=== PATIENT | male | born 1970 | race Caucasian/White ===

== ENCOUNTER 2018-10-27 16:50 | Emergency (ER) | payer BC ==
--- NOTE | 2018-10-27 18:02 | EDPHY ---
H & P Time Seen by Provider: 10/27/18 16:55 HPI/ROS: CHIEF COMPLAINT: Urinary frequency History by patient HISTORY OF PRESENT ILLNESS: 48-year-old man presents complaining of 24 hr of urinary urgency and frequency and sensation of incomplete voiding. Patient states that he today heavy [employer] workout yesterday and then last night began to have these urinary symptoms. There is no specific pain in his back or injury during the workout. He feels "sore all over" from his workout but denies specific back pain. He said he generally felt unwell today. He does have a history of kidney stones in the past many years ago but he says this feels completely different. He denies any localized sharp pain. He denies any pain radiating into his groin. He complains of some suprapubic discomfort. He denies any testicular pain. He denies any penile discharge or lesions. He is not concerned about sexually transmitted diseases. He denies any lower extremity numbness or weakness. He denies any urinary incontinence. He denies any change in bowel habits or bowel incontinence. He denies any fever. He denies any pain with bowel movements. He says his PCP checked his prostate 6 months ago and it was normal. REVIEW OF SYSTEMS: As in HPI, and all other systems reviewed and are negative Smoking Status: Never smoked Physical Exam: General Appearance: Alert, nontoxic-appearing, comfortable. Head: Normocephalic, atraumatic Eyes: Pupils equal and round, no pallor or injection. ENT, Mouth: Mucous membranes moist. Neck: No bony tenderness, full range of motion Gastrointestinal: Abdomen is soft and nontender, no masses, bowel sounds normal. : Normal external genitalia, no testicular tenderness, no penile lesions or discharge Neurological: Awake, alert and oriented x 3, no pronator drift, normal gait, no pronator drift, DTRs 2+ and equal bilaterally in knees and ankles,strength is 5/5 and equal bilaterally in lower extremities Back: No bony tenderness, no CVA tenderness Skin: Warm and dry, no rashes. Musculoskeletal: Neck is supple, FROM, nontender. Extremities: symmetrical, full range of motion. Psychiatric: Patient has normal affect, there is no agitation. Constitutional: Initial Vital Signs Temperature (C) 37.1 C 10/27/18 16:58 Heart Rate 86 10/27/18 16:58 Respiratory Rate 16 10/27/18 16:58 Blood Pressure 134/90 H 10/27/18 16:58 O2 Sat (%) 96 10/27/18 16:58 O2 Delivery Mode Room Air Allergies/Adverse Reactions: No Known Allergies Allergy (Verified 10/27/18 17:14) Home Medications: Medication Instructions Recorded Sulfamethox/Tmp 800/160 mg 1 tab PO BID #14 tab 10/27/18 [Bactrim Ds] MDM/Departure - [facility] ED Course/Re-evaluation: 40-year-old man presents with urinary symptoms. Urinalysis shows blood and leukocytes. Although the patient is leaking his urinary symptoms to his workout he has no specific back pain, there is no evidence of neurologic impairment. I doubt rhabdomyolysis as this with typically not give him urinary symptoms, and this is with the patient is worried about. Urine has been sent for micro culture as well as GC chlamydia cultures to the main lab. In the meantime will treat the patient empirically for urinary tract infection with Bactrim. It is also possible that his urinary symptoms are due to a kidney stone however, he has no symptoms of acute ureterolithiasis renal colic. I have referred him to Urology for further evaluation. - Depart Disposition: Home, Routine, Self-Care Clinical Impression: Urinary tract infection Qualifiers: Urinary tract infection type: site unspecified Hematuria presence: with hematuria Qualified Code(s): N39.0 - Urinary tract infection, site not specified Condition: Good Instructions: Sulfamethoxazole/Trimethoprim (By mouth), Urinary Tract Infection in Men (ED) Additional Instructions: You were seen by Dr. Marge Lazaro today. We are treating you for a urine infection. Please take antibiotics as prescribed. I recommend taking probiotics 1 today in between doses antibiotics. Please follow up with urologist, , for further evaluation of your symptoms and the blood in her urine.. We will call you with the results of the urine culture if they are positive. Return for any worsening or new concerns including but not limited to back pain , fever, nausea vomiting, inability take fluids or pain medicines, inability to urinate at all.. Prescriptions: Sulfamethox/Tmp 800/160 mg [Bactrim Ds] 1 tab PO BID #14 tab Referrals: Heath Kruse DO [Primary Care Provider] - As per Instructions
[2018-10-27 18:50] VITALS: BP 134/78
[2018-10-28 11:48] LABS: GC AMPLIFICATION GENPROBE NEGATIVE (NEGATIVE)
== END 2018-10-27 18:20 | disposition home or self-care (01) ==
LOC: CED 16:50
DX: N39.0 Urinary tract infection, site not specified (principal); R31.9 Hematuria, unspecified
CPT/HCPCS: 99283-ER